=== PATIENT | male | born 1955 | race Caucasian/White ===

== ENCOUNTER 2020-05-23 15:21 | Emergency (ER) | payer BC ==
[~2020-05-23] VITALS: Ht 177.8 cm; Wt 95.3 kg
[2020-05-23] MEDS ORDERED: XANAX 0.5 MG0.5 M1 PO (15:30)
[2020-05-23] MEDS ORDERED: PREDNISONE50 MG PO (16:14)
[2020-05-23 16:31] VITALS: BP 124/70
== END 2020-05-23 16:32 | disposition home or self-care (01) ==
LOC: M.ERS 15:21
DX: S60.861A Insect bite (nonvenomous) of right wrist, initial encounter (principal); S90.561A Insect bite (nonvenomous), right ankle, initial encounter; S90.562A Insect bite (nonvenomous), left ankle, initial encounter; F41.9 Anxiety disorder, unspecified; W57.XXXA Bitten or stung by nonvenomous insect and other nonvenomous arthropods, initial encounter; Y93.89 Activity, other specified; Y92.89 Other specified places as the place of occurrence of the external cause; Y99.8 Other external cause status

== ENCOUNTER 2021-02-06 10:30 | Emergency (ER) | payer BC ==
[~2021-02-06] VITALS: Ht 177.8 cm; Wt 97.5 kg
[~2021-02-06 10:30] MED LIST: PREDNISONE50 MG PO; XANAX 0.5 MG0.5 M1 PO
[2021-02-06 13:08] VITALS: BP 125/77
== END 2021-02-06 13:09 | disposition home or self-care (01) ==
LOC: M.ERS 10:30
DX: S90.452A Superficial foreign body, left great toe, initial encounter (principal); Q74.2 Other congenital malformations of lower limb(s), including pelvic girdle; X58.XXXA Exposure to other specified factors, initial encounter; Y93.89 Activity, other specified; Y92.89 Other specified places as the place of occurrence of the external cause; Y99.8 Other external cause status